=== PATIENT | male | born 1955 | race African-American/Black ===

== ENCOUNTER 2017-01-12 10:48 | Day surgery (SDC) | payer OTHER ==
[~2017-01-12 10:48] MED LIST: ALEVE220 MG OR; AMOXICILLIN500 MG; CEPHALEXIN500 MG PO; CIALIS5 MG PO; FLEXERIL OR; NAPROSYN375 MG PO; NAPROSYN500 MG OR; NAPROSYN500 MG PO; NO; ULTRAM50 M1 OR; ULTRAM50 M1 PO
== END 2017-01-12 11:48 | disposition home or self-care (01) | DRG 379 ==
LOC: ENDO 10:48 → ORM 13:20
PROVIDERS: ATTEND Internal Medicine Gastroenterology
DX: K62.5 Hemorrhage of anus and rectum (principal); R10.33 Periumbilical pain; Z53.09 Procedure and treatment not carried out because of other contraindication

== ENCOUNTER 2017-02-09 11:55 | Day surgery (SDC) | payer OTHER ==
[2017-02-09 15:29] LABS: BARBITURATES NEGATIVE (NEGATIVE); COCAINE NEGATIVE (NEGATIVE); METHADONE NEGATIVE (NEGATIVE); OXCYCODONE NEGATIVE (NEGATIVE); TETRAHYDROCANNABIONOL POSITIVE (NEGATIVE); TRICYLIC ANTIDEPRESSANTS NEGATIVE (NEGATIVE)
[2017-02-09 18:24] VITALS: BP 138/98
[2017-02-10] MEDS ORDERED: LOPRESSOR 550 MG/TAB PO (11:12)
[2017-02-10] MEDS ORDERED: ASPIRIN EC325 MG PO (11:13)
== END 2017-02-09 18:10 | DRG 349 ==
LOC: ORM 11:55 → ENDO 11:55 → ORM 17:15
PROVIDERS: ATTEND Internal Medicine Gastroenterology
PROC: 0DBN8ZX Excision of Sigmoid Colon, Via Natural or Artificial Opening Endoscopic, Diagnostic (ICD-10-PCS; principal; 2017-02-09)
PROC: 06LY4CC Occlusion of Hemorrhoidal Plexus with Extraluminal Device, Percutaneous Endoscopic Approach (ICD-10-PCS; 2017-02-09)
PROC: 0DBP8ZX Excision of Rectum, Via Natural or Artificial Opening Endoscopic, Diagnostic (ICD-10-PCS; 2017-02-09)
DX: K62.5 Hemorrhage of anus and rectum (principal); K63.5 Polyp of colon; K62.1 Rectal polyp; K62.89 Other specified diseases of anus and rectum; R10.33 Periumbilical pain; K64.4 Residual hemorrhoidal skin tags; K57.30 Diverticulosis of large intestine without perforation or abscess without bleeding; K64.8 Other hemorrhoids

== ENCOUNTER 2017-02-09 18:02 | Observation (INO) | payer OTHER ==
[~2017-02-09] VITALS: Ht 170.2 cm; Wt 68.2 kg
[2017-02-09 19:12] LABS: HEMATOCRIT 43.9 % (39.0-50.0); HEMOGLOBIN 14.4 g/dl (14.0-18.0); IMMATURE GRANULOCYTES 0.2 % (0.0-1.0); MEAN CELL VOLUME 93.2 fL CALC (80.0-100.0); MEAN CORPUSCULAR HGB 30.6 pG CALC (26.0-32.0); MEAN CORPUSCULAR HGB CONC 32.8 g/L CALC (32.0-36.0); NEUT# 2.65 thou/uL (1.82-7.42); RED BLOOD COUNT 4.71 mill/uL (4.70-6.10); RED CELL DISTRI WIDTH 13.3 % (11.5-15.5)
[2017-02-09 19:35] LABS: ACT PARTIAL THROMBO TIME 31.2 SECONDS (20.0-32.5); INTERNATIONAL NORMALIZED RATIO 1.2 RATIO (0.7-1.3)
[2017-02-09 20:02] LABS: ALBUMIN 4.1 g/dL (3.2-5.0); ALKALINE PHOSPHATASE 56 u/l (38-126); ANION GAP 16 (6-22 (CALC)); BILIRUBIN, TOTAL 0.6 mg/dL (0.0-1.4); BUN 12 mg/dL (8-23); BUN/CREATININE RATIO 13 (12-20 (CALC)); CALCIUM 8.9 mg/dL (8.4-10.2); CARBON DIOXIDE 23 mmol/l (22-30); CHLORIDE 103 mmol/l (95-108); CREATININE 0.9 mg/dL (0.7-1.3); GFR > 60 ML/MIN (>=60 (CALC)); GFR FOR AFR.AMER. > 60 ML/MIN (>=60 (CALC)); GLUCOSE 83 mg/dL (82-115); POTASSIUM 3.9 mmol/l (3.5-5.1); SGOT/AST 24 u/l (19-48); SGPT/ALT 29 u/l (11-66); SODIUM 138 mmol/l (137-146); TOTAL PROTEIN 7.5 g/dL (6.3-8.2)
[2017-02-09 20:14] LABS: MYOGLOBIN 67 ng/mL (0 - 121)
[2017-02-09 22:09] VITALS: BP 132/79
[2017-02-09 23:13] LABS: URINE BLOOD DIPSTICK NEGATIVE (NEGATIVE); URINE CLARITY CLEAR; URINE COLOR YELLOW; URINE GLUCOSE - DIPSTICK NEGATIVE (NEGATIVE); URINE KETONE >=80 mg/dL (NEGATIVE); URINE LEUK ESTERASE NEGATIVE (NEGATIVE); URINE NITRITE - DIPSTICK NEGATIVE (Negative); URINE PH 5.5 (4.5-8.0); URINE PROTEIN - DIPSTICK TRACE mg/dL (NEG-TRACE); URINE SPECIFIC GRAVITY >=1.030; URINE UROBILINOGEN - DIPSTICK 0.2 E.U./dL (0.2)
[2017-02-09 23:16] LABS: URINE BILIRUBIN - DIPSTICK SMALL (NEGATIVE)
[2017-02-09 23:21] LABS: BARBITURATES NEGATIVE (NEGATIVE); COCAINE NEGATIVE (NEGATIVE); METHADONE NEGATIVE (NEGATIVE); OXCYCODONE NEGATIVE (NEGATIVE); TETRAHYDROCANNABIONOL POSITIVE (NEGATIVE); TRICYLIC ANTIDEPRESSANTS NEGATIVE (NEGATIVE)
[2017-02-09 23:42] VITALS: BP 128/53
[2017-02-10 04:20] VITALS: BP 134/50
[2017-02-10 07:58] VITALS: BP 136/66
[2017-02-10] MEDS ORDERED: LOPRESSOR 550 MG/TAB PO (11:12)
[2017-02-10] MEDS ORDERED: ASPIRIN EC325 MG PO (11:13)
== END 2017-02-10 11:23 | disposition home or self-care (01) | DRG 316 ==
LOC: ENPENDDIS → ED 18:02 → ED-I 20:42 → ED 21:44 → MS2 21:45
PROVIDERS: Emergency Medicine; ADMIT Internal Medicine; ATTEND Internal Medicine
DX: I97.89 Other postprocedural complications and disorders of the circulatory system, not elsewhere classified (principal); I48.91 Unspecified atrial fibrillation; Y83.8 Other surgical procedures as the cause of abnormal reaction of the patient, or of later complication, without mention of misadventure at the time of the procedure; Y92.530 Ambulatory surgery center as the place of occurrence of the external cause
CPT/HCPCS: G0378

== ENCOUNTER 2017-02-17 07:27 | Emergency (ER) | payer OTHER ==
[~2017-02-17] VITALS: Ht 170.2 cm; Wt 70.9 kg
[~2017-02-17 07:27] MED LIST changes: +ASPIRIN EC325 MG PO; +LOPRESSOR 550 MG/TAB PO
[2017-02-17] MEDS ORDERED: MIRALAX3350 N1 PO (08:07)
[2017-02-17] MEDS ORDERED: COLACE100 MG PO (08:07)
[2017-02-17] MEDS ORDERED: PERCOCET 5/325M1 TAB PO (09:54)
[2017-02-17] MEDS ORDERED: PROCTOFOAM HC10 GM RE (09:54)
[2017-02-17 10:02] VITALS: BP 139/68
== END 2017-02-17 10:07 | disposition home or self-care (01) | DRG 395 ==
LOC: ED 07:27
DX: K64.8 Other hemorrhoids (principal); K59.00 Constipation, unspecified; K62.89 Other specified diseases of anus and rectum

== ENCOUNTER 2019-04-25 09:06 | Emergency (ER) | payer MEDICAID ==
[~2019-04-25] VITALS: Ht 170.2 cm; Wt 62.0 kg
[~2019-04-25 09:06] MED LIST changes: +COLACE100 MG PO; +MIRALAX3350 N1 PO; +PERCOCET 5/325M1 TAB PO; +PROCTOFOAM HC10 GM RE
[2019-04-25] MEDS ORDERED: NAPROXEN500 MG PO (09:47)
[2019-04-25 09:52] VITALS: BP 118/66
== END 2019-04-25 10:03 | disposition home or self-care (01) ==
LOC: ED 09:06
DX: S63.501A Unspecified sprain of right wrist, initial encounter (principal); X58.XXXA Exposure to other specified factors, initial encounter

== ENCOUNTER 2022-03-12 10:37 | Emergency (ER) | payer MEDICARE, MEDICAID ==
[2022-03-12] VITALS (9 sets, daily range): BP systolic 122–152; BP diastolic 55–88
[~2022-03-12] VITALS: Ht 170.2 cm; Wt 65.7 kg
[~2022-03-12 10:37] MED LIST changes: +NAPROXEN500 MG PO; +TAMSULOSIN HCL0.4 MG PO
[2022-03-12 11:33] LABS: HEMATOCRIT 44.4 % (39.0-50.0); IMMATURE GRANULOCYTES 0.2 % (0.0-5.0); MEAN CORPUSCULAR HGB 30.1 pG CALC (26.0-32.0); MEAN CORPUSCULAR HGB CONC 33.8 g/dL CAL (32.0-36.0); NEUT# 2.98 thou/uL (1.82-7.42); RED BLOOD COUNT 4.99 mill/uL (4.70-6.10); RED CELL DISTRI WIDTH 12.8 % (11.5-15.5)
[2022-03-12 11:43] LABS: ALBUMIN 4.5 g/dL (3.2-5.0); ANION GAP 14 (6-22 (CALC)); BILIRUBIN, TOTAL 0.5 mg/dL (0.0-1.4); BUN 13 mg/dL (8-23); BUN/CREATININE RATIO 14 (12-20 (CALC)); CARBON DIOXIDE 22 mmol/l (22-30); CHLORIDE 107 mmol/l (95-108); GFR FOR AFR.AMER. > 60 ML/MIN (>=60 (CALC)); GFR OTHER RACES > 60 ML/MIN (>=60 (CALC)); LIPASE 72 u/l (23-300); POTASSIUM 4.1 mmol/l (3.5-5.1); SGOT/AST 31 u/l (19-48); SODIUM 139 mmol/l (137-146); TOTAL PROTEIN 8.9 g/dL (6.3-8.2)
[2022-03-12 11:48] LABS: ALKALINE PHOSPHATASE 89 u/l (38-126)
[2022-03-12 12:18] LABS: URINE BILIRUBIN - DIPSTICK NEGATIVE (NEGATIVE); URINE BLOOD DIPSTICK SMALL (NEGATIVE); URINE COLOR YELLOW; URINE GLUCOSE - DIPSTICK NEGATIVE (NEGATIVE); URINE KETONE 15 mg/dL (NEGATIVE); URINE LEUK ESTERASE NEGATIVE (NEGATIVE); URINE PH 5.5 (4.5-8.0); URINE PROTEIN - DIPSTICK NEGATIVE (NEG-TRACE); URINE SPECIFIC GRAVITY >=1.030; URINE UROBILINOGEN - DIPSTICK 0.2 E.U./dL (0.2)
[2022-03-12 12:20] LABS: URINE NITRITE - DIPSTICK NEGATIVE (Negative)
[2022-03-12 12:28] LABS: URINE CALCIUM OXALATE CRYSTALS FEW lpf; URINE WBC 0-2 WBC/hpf (0-5)
[2022-03-12] MEDS ORDERED: MOTRIN400 MG/TAB PO ×2 (14:01→14:18)
== END 2022-03-12 14:19 | disposition home or self-care (01) ==
LOC: ED 10:37
PROVIDERS: Family Medicine
DX: R10.31 Right lower quadrant pain (principal); R10.32 Left lower quadrant pain; N50.811 Right testicular pain
CPT/HCPCS: Q9967

== ENCOUNTER 2022-06-14 09:29 | Emergency (ER) | payer MEDICARE, MEDICAID ==
[~2022-06-14] VITALS: Ht 170.2 cm; Wt 65.0 kg
[~2022-06-14 09:29] MED LIST changes: +MOTRIN400 MG/TAB PO
[2022-06-14 10:05] VITALS: BP 138/84
== END 2022-06-14 10:02 | disposition home or self-care (01) ==
LOC: ED 09:29
DX: K40.91 Unilateral inguinal hernia, without obstruction or gangrene, recurrent (principal)

== ENCOUNTER 2022-10-06 08:17 | Emergency (ER) | payer MEDICARE, MEDICAID ==
[2022-10-06] VITALS (10 sets, daily range): BP systolic 124–161; BP diastolic 51–140
[~2022-10-06] VITALS: Ht 170.2 cm; Wt 66.0 kg
[2022-10-06 09:01] LABS: BASO% 0.8 % (0-3); EOS% 3.3 % (0-8); HEMATOCRIT 43.7 % (39.0-50.0); HEMOGLOBIN 14.7 g/dl (14.0-18.0); LYMPH% 39.9 % (15-41); MEAN CELL VOLUME 90.3 fL CALC (80.0-100.0); MEAN CORPUSCULAR HGB 30.4 pG CALC (26.0-32.0); MEAN CORPUSCULAR HGB CONC 33.6 g/dL CAL (32.0-36.0); MONO% 11.1 % (2-13); NEUT# 1.78 thou/uL (1.82-7.42); NEUT% 44.9 % (42-76); RED BLOOD COUNT 4.84 mill/uL (4.70-6.10); RED CELL DISTRI WIDTH 12.8 % (11.5-15.5)
[2022-10-06 09:08] LABS: ALBUMIN 4.6 g/dL (3.2-5.0); ALKALINE PHOSPHATASE 71 u/l (38-126); ANION GAP 12 (6-22 (CALC)); BILIRUBIN, TOTAL 0.4 mg/dL (0.0-1.4); BUN 13 mg/dL (8-23); BUN/CREATININE RATIO 13 (12-20 (CALC)); CHLORIDE 106 mmol/l (95-108); GFR FOR AFR.AMER. > 60 ML/MIN (>=60 (CALC)); GFR OTHER RACES > 60 ML/MIN (>=60 (CALC)); LIPASE 100 u/l (23-300); POTASSIUM 4.2 mmol/l (3.5-5.1); SGOT/AST 30 u/l (19-48); SODIUM 141 mmol/l (137-146); TOTAL PROTEIN 8.7 g/dL (6.3-8.2)
[2022-10-06 09:09] LABS: CARBON DIOXIDE 27 mmol/l (22-30)
[2022-10-06 09:18] LABS: URINE BILIRUBIN - DIPSTICK NEGATIVE (NEGATIVE); URINE BLOOD DIPSTICK NEGATIVE (NEGATIVE); URINE COLOR YELLOW; URINE GLUCOSE - DIPSTICK NEGATIVE (NEGATIVE); URINE KETONE TRACE mg/dL (NEGATIVE); URINE LEUK ESTERASE NEGATIVE (NEGATIVE); URINE PH 5.5 (4.5-8.0); URINE PROTEIN - DIPSTICK NEGATIVE (NEG-TRACE); URINE SPECIFIC GRAVITY >=1.030
[2022-10-06 09:23] LABS: URINE NITRITE - DIPSTICK NEGATIVE (Negative)
== END 2022-10-06 11:28 | disposition home or self-care (01) ==
LOC: ED 08:17
PROVIDERS: Family Medicine
DX: R10.31 Right lower quadrant pain (principal); R10.32 Left lower quadrant pain; R91.1 Solitary pulmonary nodule
CPT/HCPCS: Q9967

== ENCOUNTER 2022-12-19 08:35 | Emergency (ER) | payer MEDICARE, MEDICAID ==
[~2022-12-19] VITALS: Ht 170.2 cm; Wt 73.5 kg
[2022-12-19] MEDS ORDERED: NAPROXEN500 MG PO (08:58)
[2022-12-19] MEDS ORDERED: OMNI-PAC300 MG PO (08:58)
[2022-12-19 09:24] VITALS: BP 138/72
== END 2022-12-19 09:33 | disposition home or self-care (01) ==
LOC: ED 08:35
DX: L03.113 Cellulitis of right upper limb (principal)

== ENCOUNTER 2023-12-05 08:47 | Emergency (ER) | payer MEDICARE, MEDICAID ==
[~2023-12-05] VITALS: Ht 170.2 cm; Wt 64.4 kg
[2023-12-05] VITALS (8 sets, daily range): BP systolic 135–149; BP diastolic 56–73
[~2023-12-05 08:47] MED LIST changes: +OMNI-PAC300 MG PO
[2023-12-05 09:24] LABS: BASO% 0.6 % (0-3); EOS% 2.4 % (0-8); HEMATOCRIT 46.9 % (39.0-50.0); HEMOGLOBIN 15.2 g/dl (14.0-18.0); IMMATURE GRANULOCYTES 0.4 % (0.0-5.0); LYMPH% 35.7 % (15-41); MEAN CORPUSCULAR HGB 31.3 pG CALC (26.0-32.0); MEAN CORPUSCULAR HGB CONC 32.4 g/dL CAL (32.0-36.0); MONO% 14.9 % (2-13); NEUT# 2.29 thou/uL (1.82-7.42); RED BLOOD COUNT 4.85 mill/uL (4.70-6.10); RED CELL DISTRI WIDTH 14.7 % (11.5-15.5)
[2023-12-05 09:25] LABS: MEAN CELL VOLUME 96.7 fL CALC (80.0-100.0)
[2023-12-05 09:38] LABS: ALBUMIN 4.5 g/dL (3.2-5.0); ALKALINE PHOSPHATASE 62 u/l (38-126); ANION GAP 7 (6-22 (CALC)); BILIRUBIN, TOTAL 0.4 mg/dL (0.2-1.3); BUN 6 mg/dL (8-23); BUN/CREATININE RATIO 6 (12-20 (CALC)); CARBON DIOXIDE 31 mmol/l (22-30); CHLORIDE 106 mmol/l (95-108); CREATININE 0.9 mg/dL (0.7-1.3); GFR FOR AFR.AMER. > 60 ML/MIN (>=60 (CALC)); GFR OTHER RACES > 60 ML/MIN (>=60 (CALC)); LIPASE 81 u/l (23-300); POTASSIUM 4.6 mmol/l (3.5-5.1); SGOT/AST 33 u/l (19-48); SODIUM 140 mmol/l (137-146); TOTAL PROTEIN 7.8 g/dL (6.3-8.2)
[2023-12-05 11:00] LABS: URINE BILIRUBIN - DIPSTICK Negative (NEGATIVE); URINE BLOOD DIPSTICK Negative (NEGATIVE); URINE GLUCOSE - DIPSTICK Negative (NEGATIVE); URINE KETONE Negative (NEGATIVE); URINE LEUK ESTERASE Negative (NEGATIVE); URINE NITRITE - DIPSTICK Negative (Negative); URINE PROTEIN - DIPSTICK Negative (NEG-TRACE); URINE SPECIFIC GRAVITY 1.015; URINE UROBILINOGEN - DIPSTICK 0.2 E.U./dL (0.2)
[2023-12-05 11:01] LABS: URINE COLOR Yellow
== END 2023-12-05 13:25 | disposition home or self-care (01) ==
LOC: ED 08:47
PROVIDERS: Family Medicine
DX: R10.31 Right lower quadrant pain (principal); R10.32 Left lower quadrant pain; R63.4 Abnormal weight loss
CPT/HCPCS: Q9967